=== PATIENT | male | born 1970 | race Two or more races ===

== ENCOUNTER 2025-03-08 05:38 | Day surgery (SDC) | payer OTHER ==
[2025-03-02 10:16] VITALS: BP 145/81
[2025-03-02 10:48] LABS: PH,URINE 6.5 (5.0-8.0); URINE APPEARANCE Clear; URINE BILIRRUBIN Negative (NEGATIVE); URINE BLOOD Negative; URINE COLOR Yellow; URINE GLUCOSE Negative (NEGATIVE); URINE KETONE Negative (NEGATIVE); URINE LEUKOCYTE Negative; URINE NITRATE Negative; URINE PROTEIN Negative (NEGATIVE); URINE UROBILINOGEN 0.2 E.U./dl
[2025-03-02 10:52] LABS: URINE BACTERIA 0 uL (0.0-1933); URINE EPITHELIAL CELLS 0.4 uL (0.0-38.8); URINE RBC 0.2 uL (0.0-20.8); URINE WBC 0.3 uL (0.0-23.2)
[2025-03-02 10:55] LABS: HEMATOCRIT 43.8 % (39.0-48.0); HEMOGLOBIN 14.7 g/dL (13-16.00); MEAN CELL VOLUME 88.8 fL (80.0-100.00); MEAN CORPUSCULAR HEMOGLOBIN 29.7 pg (27.00-32.0); MEAN CORPUSCULAR HGB CONC 33.5 g/dl (32.0-36.0); PLATELET COUNT 243 K/uL (150-450); RED BLOOD COUNT 4.94 M/uL (4.00-6.00)
[2025-03-02 11:24] LABS: PARTIAL THROMBOPLASTIN TIME 26.6 SECONDS (22.0-34.0); PROTHROMBIN TIME 10.9 SECONDS (9.0-11.5)
[2025-03-02 11:39] LABS: ALBUMIN 4.1 gm/dL (3.4-5.0); BILIRUBIN TOTAL 0.43 mg/dL (0.3-1.2); CALCIUM 9.8 mg/dL (8.5-10.1); CREATININE SERUM 0.9 mg/dL (0.70-1.30); GFR 88.61; GLOBULINA 3.8 G/DL (2.4-3.5); POTASSIUM 4.98 mEq/L (3.5-5.1); TOTAL PROTEIN 7.9 gm/dL (6.4-8.2)
[~2025-03-08] VITALS: Ht 182.9 cm; Wt 86.2 kg
[2025-03-08] MEDS ORDERED: METRONIDAZOLE/SODIUM CHLORIDE 500 MG/100 ML PIGGYBACK IV ONE (07:02)
[2025-03-08] MEDS ORDERED: CEFTRIAXONE SODIUM 2,000 MG VIAL ONE (07:02)
[2025-03-08] MEDS ORDERED: POVIDONE-IODINE 118 ML BOTT TOP ONE (08:23)
[2025-03-08] MEDS ORDERED: BUPIVACAINE HCL/MPF 0.5% 30ML VIAL ONE (08:23)
[2025-03-08] MEDS ORDERED: DIBUCAINE 30 GM TUBE ONE (08:23)
[2025-03-08] MEDS ORDERED: HEMOSTATIC MATRIX 1 KIT KIT TOP ONE (08:23)
[2025-03-08] MEDS ORDERED: LIDOCAINE HCL 1%/EPINEPHRINE 20ML VIAL IJ ONE (08:24)
[2025-03-08] MEDS ORDERED: PERCOCET 5-3251 EACH PO (09:27)
[2025-03-08] MEDS ORDERED: RECTICARE30 GM TOP (09:28)
== END 2025-03-08 13:40 | disposition home or self-care (01) ==
LOC: CIR.AMB 05:38
PROVIDERS: ATTEND Surgery
DX: K64.3 Fourth degree hemorrhoids (principal); K64.4 Residual hemorrhoidal skin tags